=== PATIENT | female | born 1990 | race Caucasian/White ===

== ENCOUNTER 2018-10-26 17:56 | Emergency (ER) | payer OTHER, MEDICAID | END 2018-10-26 19:26 | disposition left against medical advice (07) | LOC: FTE 17:56 | DX: Z53.21 Procedure and treatment not carried out due to patient leaving prior to being seen by health care provider (principal) ==

== ENCOUNTER 2018-10-26 19:31 | Outpatient (CLI) | payer OTHER ==
[2018-10-26] MEDS: LACTATED RINGER'S 1,000 ML IV ×2 (20:50→22:01)
[2018-10-26 21:17] LABS: ADD MAN DIFF? NO
[2018-10-26 21:24] LABS: WHITE BLOOD COUNT 11.9 10^3/ul (4.8-10.8)
[2018-10-26 21:24] LABS: BASOPHILS % 0.3 % (0.0-2.0); EOSINOPHILS # 0.2 10^3/ul (0.0-0.5); EOSINOPHILS % 1.5 % (0.0-7.0); HEMATOCRIT 33.8 % (37.0-47.0); HEMOGLOBIN 11.5 g/dl (12.0-16.0); LYMPHOCYTES # 0.7 10^3/ul (0.8-2.9); LYMPHOCYTES % 6.1 % (15.0-51.0); MEAN CORPUSCULAR HEMOGLOBIN 29.7 pg (29.0-33.0); MEAN CORPUSCULAR VOLUME 87.3 fl (82.0-101.0); MEAN PLATELET VOLUME 10.1 fl (7.4-10.4); MONOCYTE # 0.7 10^3/ul (0.3-0.9); MONOCYTES % 6.1 % (0.0-11.0); NEUTROPHIL # 10.2 10^3/ul (1.6-7.5); NEUTROPHILS % 85.4 % (39.0-77.0); PLATELET COUNT 282 10^3/UL (140-415); RED BLOOD COUNT 3.87 10^6/ul (4.20-5.40); RED CELL DISTRIBUTION WIDTH 11.8 % (11.5-14.5)
[2018-10-26 21:39] LABS: ADD UMIC YES; UR AMORPHOUS CRYSTAL FEW /HPF (NONE SEEN); UR ASCORBIC ACID NEGATIVE (NEGATIVE); UR BACTERIA FEW /HPF (NONE SEEN); UR BILIRUBIN (Dip) NEGATIVE (NEGATIVE); UR BLOOD (Dip) NEGATIVE (NEGATIVE); UR CLARITY TURBID (CLEAR); UR COLOR YELLOW (YELLOW); UR GLUCOSE (Dip) NEGATIVE (NEGATIVE); UR KETONES (Dip) NEGATIVE (NEGATIVE); UR LEUKOCYTE ESTERASE (Dip) NEGATIVE Leu/ul (NEGATIVE); UR NITRITE (Dip) NEGATIVE (NEGATIVE); UR RBC 0 /HPF (0-5); UR SPECIFIC GRAVITY (Dip) 1.017 (1.003-1.030); UR SQUAMOUS EPITHELIAL CELL FEW /HPF (FEW); UR TOTAL PROTEIN (Dip) NEGATIVE (NEGATIVE); UR UROBILINOGEN (Dip) 1+ mg/dL (NEGATIVE); UR WBC 13 /HPF (0-5)
[2018-10-26 21:53] LABS: ALANINE AMINOTRANSFERASE 12 IU/L (13-69); ALBUMIN 3.4 g/dl (3.3-4.9); ALBUMIN/GLOBULIN RATIO 1.09; ALKALINE PHOSPHATASE 97 IU/L (42-121); ANION GAP 9 (5-13); ASPARTATE AMINO TRANSFERASE 14 IU/L (15-46); BILIRUBIN,INDIRECT 0.4 mg/dl (0-1.1); BILIRUBIN,TOTAL 0.4 mg/dl (0.2-1.3); BLOOD UREA NITROGEN 5 mg/dl (7-20); CALCIUM 9.1 mg/dl (8.4-10.2); CARBON DIOXIDE 22 mmol/L (21-31); CHLORIDE 106 mmol/L (97-110); CREATININE 0.42 mg/dl (0.44-1.00); Estimated GFR > 60 mL/min (>60); GLUCOSE 84 mg/dl (70-220); POTASSIUM 3.6 mmol/L (3.5-5.1); SODIUM 137 mmol/L (135-144); TOTAL PROTEIN 6.5 g/dl (6.1-8.1)
[2018-10-26 22:24] LABS: HEPATITIS B SURFACE ANTIGEN NEGATIVE (NEGATIVE)
[2018-10-26 23:02] LABS: HIV 1&2 ANTIBODY NEGATIVE (NEGATIVE)
[2018-10-27 21:02] LABS: RAPID PLASMA REAGIN NONREACTIVE (NR)
== END 2018-10-26 23:09 | disposition home or self-care (01) ==
LOC: OBT 19:31 → L-D 19:33 → OBT 23:09
DX: O36.8130 Decreased fetal movements, third trimester, not applicable or unspecified (principal); O26.893 Other specified pregnancy related conditions, third trimester; R51 Headache; R42 Dizziness and giddiness; Z3A.30 30 weeks gestation of pregnancy
CPT/HCPCS: 36415; 76815; 76817; 76818; 80053; 81001; 82731; 82962; 85025; 86592; 86703; 86762; 86900; 86901; 87340; 96360

== ENCOUNTER 2019-01-05 08:45 | Inpatient (IN) | payer OTHER ==
[2019-01-05] MEDS ORDERED: MISOPROSTOL 200 MCG TAB PR (09:30)
[2019-01-05] MEDS ORDERED: OXYCODONE/ASPIRIN (4.88/325) TAB PO (09:30)
[2019-01-05] MEDS ORDERED: IBUPROFEN 600 MG TAB PO (09:30)
[2019-01-05] MEDS ORDERED: METHYLERGONOVINE 0.2 MG INJ IM (09:30)
[2019-01-05] MEDS ORDERED: CARBOPROST 250 MCG INJ IM (09:30)
[2019-01-05] MEDS ORDERED: LIDOCAINE 1% (MPF) 30 ML INJ INJ (09:30)
[2019-01-05] MEDS ORDERED: OXYTOCIN 30 UNITS/LR 500 ML IV ×2 (09:30)
[2019-01-05] MEDS ORDERED: BUTORPHANOL 2 MG INJ IV (09:30)
[2019-01-05] MEDS: LACTATED RINGER'S 1,000 ML IV ×4 (11:06→23:27)
[2019-01-05 11:15] LABS: ADD MAN DIFF? NO
[2019-01-05 11:20] LABS: BASOPHILS % 0.3 % (0.0-2.0); EOSINOPHILS # 0.1 10^3/ul (0.0-0.5); EOSINOPHILS % 0.6 % (0.0-7.0); HEMATOCRIT 36.8 % (37.0-47.0); LYMPHOCYTES # 1.5 10^3/ul (0.8-2.9); MEAN CORPUSCULAR HGB CONC 32.6 g/dl (32.0-37.0); MEAN CORPUSCULAR VOLUME 82.7 fl (82.0-101.0); MEAN PLATELET VOLUME 10.3 fl (7.4-10.4); MONOCYTE # 0.6 10^3/ul (0.3-0.9); MONOCYTES % 6.1 % (0.0-11.0); NEUTROPHIL # 8.2 10^3/ul (1.6-7.5); NEUTROPHILS % 78.3 % (39.0-77.0); PLATELET COUNT 328 10^3/UL (140-415); RED BLOOD COUNT 4.45 10^6/ul (4.20-5.40); RED CELL DISTRIBUTION WIDTH 12.9 % (11.5-14.5)
[2019-01-05 11:20] LABS: WHITE BLOOD COUNT 10.4 10^3/ul (4.8-10.8)
[2019-01-05 11:31] LABS: GLUCOSE 74 mg/dl (70-220)
[2019-01-05 11:39] LABS: INR 0.86; PROTIME 11.8 Sec (11.9-14.9); PT RATIO 0.9
[2019-01-05 11:40] LABS: PARTIAL THROMBOPLASTIN TIME 28.6 Sec (23.0-35.0)
[2019-01-05 12:03] LABS: HEPATITIS B SURFACE ANTIGEN NEGATIVE (NEGATIVE)
[2019-01-05 12:08] LABS: AMPHETAMINE/METHAMPHETAMINE Negative (NEGATIVE); BARBITURATES Negative (NEGATIVE); BENZODIAZEPINES Negative (NEGATIVE); CANNABINOIDS Negative (NEGATIVE); COCAINE Negative (NEGATIVE); OPIATES Negative (NEGATIVE)
[2019-01-05] MEDS: MISOPROSTOL 50 MCG CAPSULE PO ×3 (12:36→22:11)
[2019-01-05 19:45] LABS: RAPID PLASMA REAGIN NONREACTIVE (NR)
[2019-01-05] MEDS ORDERED: FENTAnyl 2MCG/ML-ROPIV 0.2% 100 ML (23:41)
[2019-01-06] MEDS ORDERED: NALOXONE (0.4 MG/ML) INJ IV
[2019-01-06] MEDS: FENTAnyl 2MCG/ML-ROPIV 0.2% 100 ML BAG EPI ×3 (00:05→14:44)
[2019-01-06] MEDS: LACTATED RINGER'S 1,000 ML IV ×2 (05:46→13:40)
[2019-01-06] MEDS: OXYTOCIN 30 UNITS/LR 500 ML IV ×2 (09:07→18:10)
[2019-01-06] MEDS ORDERED: TERBUTALINE 1 ML (15:49)
[2019-01-06] MEDS: TERBUTALINE 1 MG/ML INJ SC (15:53)
[2019-01-06] MEDS: KETOROLAC 30 MG INJ IV (20:31)
[2019-01-06] MEDS ORDERED: MISOPROSTOL 200 MCG TAB PR (22:00)
[2019-01-06] MEDS ORDERED: METHYLERGONOVINE 0.2 MG INJ IM (22:00)
[2019-01-06] MEDS ORDERED: ZOLPIDEM 5 MG TAB PO (22:00)
[2019-01-06] MEDS ORDERED: OXYTOCIN 30 UNITS/LR 500 ML IV (22:00)
[2019-01-06] MEDS ORDERED: HYDROCODONE/APAP (5/325) TAB PO (22:00)
[2019-01-06] MEDS ORDERED: DIBUCAINE 1% 30 GM OINT TOP (22:00)
[2019-01-06] MEDS ORDERED: CARBOPROST 250 MCG INJ IM (22:00)
[2019-01-06] MEDS: LACTATED RINGER'S 1,000 ML IV* (22:06)
[2019-01-07] MEDS: IBUPROFEN 600 MG TAB PO ×5 (00:15→23:28)
[2019-01-07] MEDS: CEPHALEXIN 500 MG CAP PO ×5 (00:15→23:28)
[2019-01-07] MEDS: BENZOCAINE 20% 56 ML SPRAY TOP (00:16)
[2019-01-07] MEDS: LANOLIN HPA 1 PKT TOP (00:16)
[2019-01-07] MEDS: WITCH HAZEL/GLYCERIN PAD PR (00:16)
[2019-01-07 08:40] LABS: ADD MAN DIFF? NO
[2019-01-07] MEDS: SENNA/DOCUSATE NA (8.6MG/50MG) TAB PO ×2 (08:40→21:50)
[2019-01-07 08:46] LABS: WHITE BLOOD COUNT 12.8 10^3/ul (4.8-10.8)
[2019-01-07 08:46] LABS: BASOPHILS % 0.2 % (0.0-2.0); EOSINOPHILS # 0.1 10^3/ul (0.0-0.5); EOSINOPHILS % 0.5 % (0.0-7.0); HEMATOCRIT 29.9 % (37.0-47.0); HEMOGLOBIN 9.7 g/dl (12.0-16.0); LYMPHOCYTES # 1.2 10^3/ul (0.8-2.9); LYMPHOCYTES % 9.4 % (15.0-51.0); MEAN CORPUSCULAR HEMOGLOBIN 27.2 pg (29.0-33.0); MEAN CORPUSCULAR HGB CONC 32.4 g/dl (32.0-37.0); MEAN CORPUSCULAR VOLUME 83.8 fl (82.0-101.0); MEAN PLATELET VOLUME 10.3 fl (7.4-10.4); MONOCYTE # 1.1 10^3/ul (0.3-0.9); MONOCYTES % 8.5 % (0.0-11.0); NEUTROPHIL # 10.3 10^3/ul (1.6-7.5); NEUTROPHILS % 80.5 % (39.0-77.0); PLATELET COUNT 248 10^3/UL (140-415); RED BLOOD COUNT 3.57 10^6/ul (4.20-5.40); RED CELL DISTRIBUTION WIDTH 13.1 % (11.5-14.5)
[2019-01-07] MEDS: MAGNESIUM HYDROXIDE 30ML CUP PO ×2 (09:00→21:50)
[2019-01-07] MEDS: HYDROCODONE/APAP (5/325) TAB PO (16:53)
[2019-01-08 05:15] LABS: ADD MAN DIFF? NO
[2019-01-08 05:23] LABS: BASOPHILS % 0.4 % (0.0-2.0); EOSINOPHILS # 0.2 10^3/ul (0.0-0.5); EOSINOPHILS % 2.2 % (0.0-7.0); HEMATOCRIT 29.4 % (37.0-47.0); HEMOGLOBIN 9.3 g/dl (12.0-16.0); LYMPHOCYTES # 2.1 10^3/ul (0.8-2.9); LYMPHOCYTES % 19.3 % (15.0-51.0); MEAN CORPUSCULAR HEMOGLOBIN 26.9 pg (29.0-33.0); MEAN CORPUSCULAR HGB CONC 31.6 g/dl (32.0-37.0); MEAN PLATELET VOLUME 10.4 fl (7.4-10.4); MONOCYTE # 0.7 10^3/ul (0.3-0.9); MONOCYTES % 6.3 % (0.0-11.0); NEUTROPHIL # 7.6 10^3/ul (1.6-7.5); NEUTROPHILS % 71.1 % (39.0-77.0); PLATELET COUNT 255 10^3/UL (140-415); RED BLOOD COUNT 3.46 10^6/ul (4.20-5.40); RED CELL DISTRIBUTION WIDTH 13.5 % (11.5-14.5)
[2019-01-08 05:23] LABS: WHITE BLOOD COUNT 10.7 10^3/ul (4.8-10.8)
[2019-01-08] MEDS: CEPHALEXIN 500 MG CAP PO ×2 (05:24→13:02)
[2019-01-08] MEDS: IBUPROFEN 600 MG TAB PO ×2 (05:25→13:01)
[2019-01-08] MEDS: SENNA/DOCUSATE NA (8.6MG/50MG) TAB PO (09:00)
[2019-01-08] MEDS: MAGNESIUM HYDROXIDE 30ML CUP PO (09:00)
[2019-01-08] MEDS: DIPHTH/TET/ACEL PERTUSS (ADULT) 0.5 ML VIAL IM* (09:15)
[2019-01-08] MEDS: MEASLES,MUMPS,RUBELLA VACCINE INJ SC* (09:16)
[2019-01-08] MEDS: VARICELLA VACCINE LIVE/PF 1,350 UNIT/0.5 ML ML SC* (09:16)
[2019-01-08] MEDS: HYDROCODONE/APAP (5/325) TAB PO (09:23)
== END 2019-01-08 13:45 | disposition home or self-care (01) | DRG 807 ==
LOC: OBT 08:45 → MS1 01-07 22:36 → L-D 08:45 → OBT 10:15 → L-D 10:05 → PP1 01-06 21:10
PROVIDERS: Obstetrics & Gynecology
PROC: 3E0P7GC Introduction of Other Therapeutic Substance into Female Reproductive, Via Natural or Artificial Opening (ICD-10-PCS; 2019-01-05)
PROC: 4A1HXCZ Monitoring of Products of Conception, Cardiac Rate, External Approach (ICD-10-PCS; 2019-01-05)
PROC: 10D07Z6 Extraction of Products of Conception, Vacuum, Via Natural or Artificial Opening (ICD-10-PCS; principal; 2019-01-06)
DX: O48.0 Post-term pregnancy (principal); Z37.0 Single live birth; O76 Abnormality in fetal heart rate and rhythm complicating labor and delivery; Z3A.40 40 weeks gestation of pregnancy
CPT/HCPCS: 62319; 76815; 76818; 80307; 82947; 82962; 85025; 85610; 85730; 86592; 86850; 86900; 86901; 87340; 90715; 90716; 99464